=== PATIENT | male | born 1965 | race Hispanic/Latino ===

== ENCOUNTER 2023-07-03 11:17 | Observation (INO) | payer OTHER ==
[~2023-07-03] VITALS: Ht 165.1 cm; Wt 95.3 kg
[2023-07-03] MEDS ORDERED: SODIUM CHLORIDE 0.9% 1000ML 1,000 ML IV STA (11:59)
[2023-07-03 12:29] LABS: BASOPHILS # (AUTO) 0.1 (0.0-0.1); BASOPHILS % 0.6 % (0.0-1.0); EOSINOPHILS # (AUTO) 0.2 (0.0-0.4); EOSINOPHILS % 1.6 % (0.0-6.0); HEMATOCRIT 42.6 % (38.2-49.6); HEMOGLOBIN 14.5 g/dL (14.0-18.0); LYMPHOCYTES % 19.8 % (18.0-39.1); MEAN CORPUSCULAR HEMOGLOBIN 28.3 pg (28-32); MEAN CORPUSCULAR VOLUME 83.2 fL (81-99); MONOCYTES # (AUTO) 0.8 (0.2-0.8); MONOCYTES % 7.4 % (4.4-11.3); NEUTROPHILS # (AUTO) 7.1 (2.1-6.9); NEUTROPHILS % 69.1 % (38.7-80.0); PLATELET COUNT 240 x10e3/uL (140-360); RED BLOOD COUNT 5.12 x10e6/uL (4.3-5.7); RED CELL DISTRIBUTION WIDTH 12.7 % (11.7-14.4); WHITE BLOOD COUNT 10.31 x10e3/uL (4.8-10.8)
[2023-07-03] MEDS ORDERED: LABETALOL HCL 5 MG/ML 20ML VIAL IV STA ×2 (12:30→19:31)
[2023-07-03 12:45] LABS: INR 0.83; PROTHROMBIN TIME 11.6 seconds (11.9-14.5)
[2023-07-03 12:46] LABS: PARTIAL THROMBOPLASTIN TIME 28.1 seconds (23.8-35.5)
[2023-07-03 13:37] LABS: ALANINE AMINOTRANSFERASE 43 IU/L (0-55); ALBUMIN 4.6 g/dL (3.5-5.0); ALBUMIN/GLOBULIN RATIO 1.5 (0.8-2.0); ALKALINE PHOSPHATASE 82 IU/L (40-150); ANION GAP 20.2 mmol/L (8-16); BILIRUBIN,TOTAL 0.5 mg/dL (0.2-1.2); BLOOD UREA NITROGEN 17 mg/dL (7-26); BUN/CREATININE RATIO 20 (6-25); CARBON DIOXIDE 20 mmol/L (22-29); CHLORIDE 102 mmol/L (98-107); CREATINE KINASE 158 IU/L (30-200); CREATININE, SERUM 0.87 mg/dL (0.72-1.25); EST GLOMERULAR FILTRATION RATE 99 ML/MIN (>=60); GLUCOSE 190 mg/dL (74-118); MAGNESIUM 1.6 MG/DL (1.3-2.1); POTASSIUM 4.2 mmol/L (3.5-5.1); SODIUM 138 mmol/L (136-145); TOTAL PROTEIN 7.7 g/dL (6.5-8.1)
[2023-07-03 13:40] LABS: TROPONIN I < 0.001 ng/mL (0-0.300)
[2023-07-03 14:42] LABS: CREATINE KINASE 127 IU/L (30-200)
[2023-07-03 14:50] LABS: TROPONIN I < 0.001 ng/mL (0-0.300)
[2023-07-03] MEDS ORDERED: LORAZEPAM INJ 2 MG/ML VIAL IV ONE (15:45)
[2023-07-03] MEDS ORDERED: Morphine 2mg Syringe 2 MG/ML SYR IV PRN (16:30)
[2023-07-03] MEDS ORDERED: MULTIVITAMINS- 12 INJECTION 10 ML, FOLIC ACID MDV 1 MG, THIAMINE HCL INJ 100 MG in SODI... IV ONE (16:30)
[2023-07-03] MEDS ORDERED: ONDANSETRON HCL INJ 2MG/ML 2ML 2 MG/ML VIAL IV PRN (16:30)
[2023-07-03] MEDS ORDERED: LORAZEPAM INJ 2 MG/ML VIAL IV PRN (16:30)
[2023-07-03] MEDS: METOPROLOL TARTRATE 25 MG TAB PO SCH (16:59)
[2023-07-03] MEDS ORDERED: MULTIVITAMINS INJECTION ONE (17:17)
[2023-07-03] MEDS ORDERED: CLONIDINE HCL 0.1 MG TAB PO PRN (17:30)
[2023-07-03] MEDS ORDERED: ACETAMINOPHEN 325 MG TAB PO PRN (17:30)
[2023-07-03] MEDS ORDERED: LABETALOL HCL 5 MG/ML 20ML VIAL IV PRN (19:45)
[2023-07-03] MEDS: CHLORDIAZEPOXIDE HCL 25 MG CAP PO SCH (20:13)
[2023-07-03 20:34] LABS: AMPHETAMINES SCREEN,URINE NEGATIVE (NEGATIVE); BENZODIAZEPINES SCREEN,URINE NEGATIVE (NEGATIVE); CANNABINOIDS SCREEN,URINE NEGATIVE (NEGATIVE); METHADONE SCREEN, URINE NEGATIVE (NEGATIVE); OPIATES SCREEN,URINE NEGATIVE (NEGATIVE); PHENCYCLIDINE SCREEN,URINE NEGATIVE (NEGATIVE)
[2023-07-03 21:00] VITALS: BP 159/95; PULSE 97; RESP 22; TEMP 98.8; O2SAT 95
[2023-07-03] MEDS: FAMOTIDINE 20 MG/2 ML VIAL IV SCH (22:07)
[2023-07-04] VITALS (7 sets, daily range): BP systolic 142–171; BP diastolic 90–104; PULSE 80–91; RESP 16–21; TEMP 98–98.6; O2SAT 96–100
[2023-07-04] MEDS: CHLORDIAZEPOXIDE HCL 25 MG CAP PO SCH ×3 (00:22→12:00)
[2023-07-04 01:22] LABS: TROPONIN I 0.003 ng/mL (0-0.300)
[2023-07-04] MEDS ORDERED: LISINOPRIL-HCT1 EACH PO (03:35)
[2023-07-04] MEDS ORDERED: METFORMIN HCL1000 MG PO (03:35)
[2023-07-04] MEDS ORDERED: LISINOPRIL20 MG PO (03:35)
[2023-07-04] MEDS ORDERED: ATORVASTATIN CA20 MG PO (03:35)
[2023-07-04] MEDS ORDERED: GLIPIZIDE10 MG PO (03:35)
[2023-07-04 05:36] LABS: BASOPHILS # (AUTO) 0.1 (0.0-0.1); BASOPHILS % 0.8 % (0.0-1.0); EOSINOPHILS # (AUTO) 0.2 (0.0-0.4); EOSINOPHILS % 2.4 % (0.0-6.0); HEMATOCRIT 37.6 % (38.2-49.6); HEMOGLOBIN 12.8 g/dL (14.0-18.0); LYMPHOCYTES % 22.2 % (18.0-39.1); MEAN CORPUSCULAR HEMOGLOBIN 28.4 pg (28-32); MEAN CORPUSCULAR VOLUME 83.6 fL (81-99); MONOCYTES # (AUTO) 0.8 (0.2-0.8); MONOCYTES % 9.2 % (4.4-11.3); NEUTROPHILS # (AUTO) 5.8 (2.1-6.9); NEUTROPHILS % 64.8 % (38.7-80.0); PLATELET COUNT 190 x10e3/uL (140-360); RED CELL DISTRIBUTION WIDTH 12.8 % (11.7-14.4); WHITE BLOOD COUNT 8.99 x10e3/uL (4.8-10.8)
[2023-07-04 06:11] LABS: ALBUMIN 3.6 g/dL (3.5-5.0); ALBUMIN/GLOBULIN RATIO 1.5 (0.8-2.0); ANION GAP 13.4 mmol/L (8-16); CALCIUM 7.8 mg/dL (8.4-10.2); CREATININE, SERUM 0.71 mg/dL (0.72-1.25); POTASSIUM 3.4 mmol/L (3.5-5.1)
[2023-07-04 06:29] LABS: CHOL/HDL RATIO 4.6 (3.9-4.7)
[2023-07-04 06:53] LABS: CREATINE KINASE 113 IU/L (30-200)
[2023-07-04 07:00] LABS: TROPONIN I < 0.001 ng/mL (0-0.300)
[2023-07-04] MEDS: ASPIRIN 81 MG ENTERIC COATED PO SCH (08:36)
[2023-07-04] MEDS: FAMOTIDINE 20 MG/2 ML VIAL IV SCH ×2 (08:37→21:14)
[2023-07-04] MEDS: METOPROLOL TARTRATE 25 MG TAB PO SCH (08:37)
[2023-07-04 11:43] LABS: T3 UPTAKE 38.58 % (22.5-37.0); T4 (THYROXINE) 3.39 ug/dL (4.5-10.9); THYROID STIMULATING HORMONE 2.135 uIU/mL (0.350-4.940)
[2023-07-04] MEDS ORDERED: DEXTROSE 50% SYRINGE 50 ML IV PRN (12:45)
[2023-07-04] MEDS ORDERED: CHLORDIAZEPOXIDE HCL 25 MG CAP PO PRN (13:15)
[2023-07-04] MEDS ORDERED: POTASSIUM CHLORIDE 10MEQ EA PO ONE (14:00)
[2023-07-04] MEDS: METOPROLOL TARTRATE 50 MG TAB PO SCH (16:28)
[2023-07-04] MEDS: INSULIN REGULAR, HUMAN 100 UNIT/1 ML SQ SCH ×2 (21:24→21:29)
[2023-07-05 00:30] VITALS: BP 136/79; PULSE 73; RESP 22; TEMP 97.6; O2SAT 98
[2023-07-05 04:37] VITALS: BP 137/92; PULSE 66; RESP 22; TEMP 97.9; O2SAT 96
[2023-07-05] MEDS ORDERED: GLIPIZIDE 5 MG TAB PO SCH (07:30)
[2023-07-05 08:00] VITALS: BP 137/92; PULSE 66; RESP 22; TEMP 97.9; O2SAT 96
[2023-07-05 08:59] VITALS: BP 151/101; PULSE 77; RESP 16; TEMP 98.2; O2SAT 98
[2023-07-05] MEDS ORDERED: GLIPIZIDE PO SCH (09:00)
[2023-07-05] MEDS ORDERED: ATORVASTATIN 20 MG TAB PO SCH (09:00)
[2023-07-05] MEDS: METOPROLOL TARTRATE 50 MG TAB PO SCH (10:02)
[2023-07-05] MEDS: FAMOTIDINE 20 MG/2 ML VIAL IV SCH (10:03)
[2023-07-05] MEDS: INSULIN REGULAR, HUMAN 100 UNIT/1 ML SQ SCH ×2 (10:04→11:30)
[2023-07-05] MEDS: ASPIRIN 81 MG ENTERIC COATED PO SCH (10:12)
[2023-07-05] MEDS ORDERED: LOSARTAN POTASSIUM 25 MG TAB PO SCH (10:30)
[2023-07-05] MEDS ORDERED: METOPROLOL TART50 MG PO (11:11)
[2023-07-05] MEDS ORDERED: ONDANSETRON HCL 4 MG ORAL DISINTEGRATING TAB PO PRN (11:45)
[2023-07-05 12:39] VITALS: BP 123/77; PULSE 65; RESP 16; TEMP 98.1; O2SAT 97
[2023-07-05] MEDS ORDERED: FAMOTIDINE 20 MG TAB PO SCH (21:00)
== END 2023-07-05 15:00 | disposition home or self-care (01) ==
LOC: ER 12:09 → ERHOLD 16:29 → MED/SURG2 21:07
PROVIDERS: ADMIT Internal Medicine; ATTEND Internal Medicine
DX: R07.89 Other chest pain (principal); R00.0 Tachycardia, unspecified; I10 Essential (primary) hypertension; E87.6 Hypokalemia; F10.130 Alcohol abuse with withdrawal, uncomplicated; Z71.41 Alcohol abuse counseling and surveillance of alcoholic; E78.00 Pure hypercholesterolemia, unspecified; E11.9 Type 2 diabetes mellitus without complications; Z79.84 Long term (current) use of oral hypoglycemic drugs; I08.2 Rheumatic disorders of both aortic and tricuspid valves; Z71.3 Dietary counseling and surveillance; Z68.34 Body mass index [BMI] 34.0-34.9, adult; Z71.82 Exercise counseling; Z11.52 Encounter for screening for COVID-19; Z79.899 Other long term (current) drug therapy
CPT/HCPCS: 36415 ×3; 71045; 80053 ×2; 80061; 80307; 82550 ×2; 82948 ×2; 83036; 83735; 83880; 84436; 84443 ×2; 84479; 84484 ×2; 85025 ×2; 85379; 85610; 85730; 93005; 93306; 99284; C9113; G0378 ×3; J2060; J3411; J3490; J7030; U0002